=== PATIENT | male | born 1955 | race Caucasian/White ===

== ENCOUNTER → 2018-12-02 | Outpatient (CLI) | payer OTHER ==
[2018-12-02 09:28] LABS: Basophils % (A) 1 %; Eosinophils # (A) 0.3 k/uL (0-0.7); Eosinophils % (A) 6 %; HCT 40.9 % (39.0-53.0); HGB 13.6 gm/dL (13.0-17.5); Lymphocytes # (A) 1.5 k/uL (1.0-4.8); Lymphocytes % (A) 29 %; MCH 31.6 pg (25.0-35.0); MCHC 33.3 g/dL (31.0-37.0); MCV 94.9 fL (80.0-100.0); Mean Platelet Volume 6.8; Monocytes # (A) 0.3 k/uL (0-1.0); Monocytes % (A) 6 %; Neutrophils # (A) 2.9 k/uL (1.3-7.7); Neutrophils % (A) 56 %; Platelet Count 274 k/uL (150-450); RBC 4.31 m/uL (4.30-5.90); RDW 13.7 % (11.5-15.5); WBC 5.2 k/uL (3.8-10.6)
[2018-12-02 17:07] LABS: Albumin 4.5 g/dL (3.80-4.90); Albumin/Globulin Ratio 2.14 (1.60-3.17); Anion Gap 10.3 mmol/L (4.00-12.00); Calcium 9.3 mg/dL (8.7-10.3); Carbon Dioxide 24.7 mmol/L (21.6-31.8); Globulin 2.1 g/dL (1.6-3.3); LDL Cholesterol,Calculated 101.2 mg/dL (0.0-131.0); Potassium 4.4 mmol/L (3.5-5.5); Total Bilirubin 0.9 mg/dL (0.2-1.2); Total Protein 6.6 g/dL (6.2-8.2); Uric Acid 6.3 mg/dL (3.7-8.7); VLDL Calculation 46.8 mg/dL (5.00-40.00)
[2018-12-02 20:31] LABS: Hemoglobin A1C 5.8 % (4.0-6.0)
== END | disposition home or self-care (01) ==
LOC: LABWHC1 08:26
PROVIDERS: ATTEND Internal Medicine
DX: I10 Essential (primary) hypertension (principal); I25.10 Atherosclerotic heart disease of native coronary artery without angina pectoris; E11.9 Type 2 diabetes mellitus without complications; M10.9 Gout, unspecified
CPT/HCPCS: 36415; 80053; 80061; 82550; 83036; 84550; 85025

== ENCOUNTER 2019-01-18 21:01 | Emergency (ER) | payer BC, OTHER ==
[2019-01-18] MEDS ORDERED: DIPH,PERTUS(ACELL)TETVAC-LF 0.5 ML VIAL IM ONE (21:53)
--- NOTE | 2019-01-18 21:53 | ED ---
Head Injury HPI - General Chief complaint: Head Injury Stated complaint: Head Injury/ Dizziness Time Seen by Provider: 01/18/19 21:11 Source: patient Mode of arrival: ambulatory Limitations: no limitations - History of Present Illness Initial comments: Sisi is a previously healthy 63-year-old gentleman who presents the emergency department today for evaluation of head and neck pain. Patient reports that around 2 PM he was walking outside when he walked directly into a tree striking the left forehead. He reports that when this happened he heard a crunching or popping sound in his neck. Patient reports he's been ambulatory since that time but is been developing progressively worsening headache with some photophobia and neck pain. Pain is in the bilateral neck radiating to the bilateral shoulders. Patient takes baby aspirin daily but is on no novel oral anticoagulants or other and her platelet medications. Patient denies any vision changes, troubles with speaking or swallowing, any weakness in the arms or legs, any gait disturbance, - Related Data Home Medications Medication Instructions Recorded Confirmed Allopurinol [Zyloprim] 300 mg PO DAILY 01/18/19 01/18/19 Aspirin EC [Ecotrin Low Dose] 81 mg PO BID 01/18/19 01/18/19 Biotin 10,000 mcg PO DAILY 01/18/19 01/18/19 Cholecalciferol [Vitamin D3 (25 1,000 unit PO DAILY 01/18/19 01/18/19 Mcg = 1000 Iu)] Fish Oil/Dha/Epa [Fish Oil 1,200 2 cap PO BID 01/18/19 01/18/19 mg Fish Oil] Gabapentin [Neurontin] 300 mg PO TID 01/18/19 01/18/19 Losartan [Cozaar] 50 mg PO DAILY 01/18/19 01/18/19 Pravastatin Sodium [Pravachol] 20 mg PO DAILY 01/18/19 01/18/19 Zinc 50 mg PO DAILY 01/18/19 01/18/19 metFORMIN HCL [Glucophage] 500 mg PO BID 01/18/19 01/18/19 Previous Rx's Medication Instructions Recorded Ibuprofen [Motrin] 800 mg PO TID #30 tab 01/18/19 Methocarbamol [Robaxin-750] 750 mg PO TID #30 tablet 01/18/19 Allergies/Adverse reactions: Allergies Allergy/AdvReac Type Severity Reaction Status Date / Time bacitracin Allergy Rash/Hives Verified 01/18/19 21:13 [From Neosporin ([id number])] bee venom protein (honey bee) Allergy Rash/Hives Verified 01/18/19 21:13 codeine Allergy Vomiting Verified 01/18/19 21:13 neomycin Allergy Rash/Hives Verified 01/18/19 21:13 [From Neosporin ([id number])] polymyxin B Allergy Rash/Hives Verified 01/18/19 21:13 [From Neosporin ([id number])] Review of Systems ROS Statement: Those systems with pertinent positive or pertinent negative responses have been documented in the HPI. ROS Other: All systems not noted in ROS Statement are negative. Past Medical History Past Medical History: Diabetes Mellitus, Hyperlipidemia, Hypertension Additional Past Medical History / Comment(s): back pain, neck pain History of Any Multi-Drug Resistant Organisms: None Reported Past Surgical History: Orthopedic Surgery Additional Past Surgical History / Comment(s): hip surgery Past Psychological History: No Psychological Hx Reported Smoking Status: Never smoker Past Alcohol Use History: Occasional Past Drug Use History: None Reported General Exam - General Exam Comments Initial Comments: GENERAL: Patient is well-developed and well-nourished. Patient is nontoxic and well-hydrated and is in no distress. HENT: Normocephalic Abrasion to left forehead TM are normal bilaterally no hemotympanum Neck is soft and supple. Oropharynx is clear. Moist mucous membranes. EYES: The sclera were anicteric and conjunctiva were pink and moist. Extraocular movements were intact and pupils were equal round and reactive to light. Eyelids were unremarkable. No papilledema PULMONARY: Unlabored respirations. Good breath sounds bilaterally. No audible rales rhonchi or wheezing was noted. CARDIOVASCULAR: There is a regular rate and rhythm without any murmurs gallops or rubs. ABDOMEN: Soft and nontender with normal bowel sounds. SKIN: Skin is clear with no lesions or rashes and otherwise unremarkable. NEUROLOGIC: Patient is alert and oriented x3. Cranial nerves II through XII are grossly intact. Motor and sensory are also intact. Normal speech, volume and content. Symmetrical smile. MUSCULOSKELETAL: Normal extremities with adequate strength and full range of motion. No lower extremity swelling or edema. No calf tenderness. LYMPHATICS: No significant lymphadenopathy is noted PSYCHIATRIC: Normal psychiatric evaluation. Limitations: no limitations Course Vital Signs 01/18/19 21:02 Temperature 97.9 F Pulse Rate 101 H Respiratory 18 Rate Blood Pressure 154/93 O2 Sat by Pulse 98 Oximetry Medical Decision Making - Medical Decision Making Patient was seen and evaluated history was obtained from patient and family at bedside Patient is neurovascularly intact CT imaging was obtained CT imaging revealed no acute injuries, patient was reexamined cervical collar was removed, patient has mild paraspinal discomfort likely whiplash injury. Results were discussed with the patient, this time patient's comfortable the plan for discharge home with supportive care. Information on concussions and cervical spine were provided to the patient. Return parameters were discussed, patient was discharged home in stable condition. Disposition Clinical Impression: Closed head injury, Postconcussion syndrome, Cervical strain, acute Disposition: HOME SELF-CARE Condition: Stable Instructions (If sedation given, give patient instructions): Concussion (ED) Prescriptions: Ibuprofen [Motrin] 800 mg PO TID #30 tab Methocarbamol [Robaxin-750] 750 mg PO TID #30 tablet Is patient prescribed a controlled substance at d/c from ED?: No Referrals: Elian Pérez MD [Primary Care Provider] - 1-2 days
--- NOTE | 2019-01-18 22:12 | CT ---
EXAM: CT Head Without Intravenous Contrast CLINICAL HISTORY: ITS.REASON CT Reason: Pain TECHNIQUE: Axial computed tomography images of the head/brain without intravenous contrast. CTDI is 30 mGy and DLP is 1396 mGy-cm. This CT exam was performed using one or more of the following dose reduction techniques: automated exposure control, adjustment of the mA and/or kV according to patient size, and/or use of iterative reconstruction technique. COMPARISON: No relevant prior studies available. FINDINGS: Brain: No hemorrhage, large hypodensity, or mass effect. Ventricles: No hydrocephalus. Bones/joints: Unremarkable. Soft tissues: Unremarkable. Sinuses: Unremarkable. Mastoid air cells: Clear. IMPRESSION: No acute hemorrhage, hydrocephalus, or mass effect. EXAM: CT Cervical Spine Without Intravenous Contrast CLINICAL HISTORY: ITS.REASON CT Reason: Pain TECHNIQUE: Axial computed tomography images of the cervical spine without intravenous contrast. CTDI is 30 mGy and DLP is 1396 mGy-cm. This CT exam was performed using one or more of the following dose reduction techniques: automated exposure control, adjustment of the mA and/or kV according to patient size, and/or use of iterative reconstruction technique. COMPARISON: No relevant prior studies available. FINDINGS: Vertebrae: No acute fracture. Discs/spinal canal/neural foramina: Mild multilevel degenerative disc disease. No high grade spinal canal stenosis. Soft tissues: Unremarkable. IMPRESSION: No acute fracture or subluxation.
[2019-01-18] MEDS ORDERED: KETOROLAC 30 MG/ML 1 ML VIAL IM STA (22:25)
[2019-01-18] MEDS ORDERED: DIAZEPAM 2 MG TAB PO STA (22:26)
[2019-01-18 23:15] VITALS: BP 121/78; PULSE 77; RESP 20; TEMP 98
== END 2019-01-18 23:14 | disposition home or self-care (01) ==
LOC: EC 21:01
DX: F07.81 Postconcussional syndrome (principal); S16.1XXA Strain of muscle, fascia and tendon at neck level, initial encounter; S09.90XA Unspecified injury of head, initial encounter; E11.9 Type 2 diabetes mellitus without complications; E78.5 Hyperlipidemia, unspecified; I10 Essential (primary) hypertension; Z79.82 Long term (current) use of aspirin; Z79.84 Long term (current) use of oral hypoglycemic drugs; Z79.899 Other long term (current) drug therapy; Z88.1 Allergy status to other antibiotic agents; Z88.5 Allergy status to narcotic agent; Z91.030 Bee allergy status; W22.8XXA Striking against or struck by other objects, initial encounter; Y93.01 Activity, walking, marching and hiking; Y92.89 Other specified places as the place of occurrence of the external cause; Z23 Encounter for immunization
CPT/HCPCS: 72125; 70450; 90715; 99284; 90471; 96372; J1885

== ENCOUNTER → 2019-05-20 | Outpatient (CLI) | payer BC ==
--- NOTE | 2019-05-20 13:42 | XR ---
EXAMINATION TYPE: XR chest 2V DATE OF EXAM: 05/20/2019 COMPARISON: NONE HISTORY: Cough and congestion for 1.5 weeks. TECHNIQUE: Frontal and lateral views of the chest are obtained. FINDINGS: Back on underlying emphysematous changes are present on lateral view with flattened hemidia phragms. There is no focal air space opacity, pleural effusion, or pneumothorax seen. The cardiac s ilhouette size is within normal limits. The osseous structures are intact. IMPRESSION: Chronic emphysematous change without acute pulmonary process.
== END | disposition home or self-care (01) ==
LOC: RADXRMAIN 11:54
PROVIDERS: ATTEND Internal Medicine Geriatric Medicine
DX: J43.9 Emphysema, unspecified (principal)
CPT/HCPCS: 71046

== ENCOUNTER → 2019-09-30 | Outpatient (CLI) | payer BC, MEDICARE ==
[2019-09-30 08:39] LABS: Basophils # (A) 0.1 k/uL (0-0.2); Basophils % (A) 1 %; Eosinophils # (A) 0.5 k/uL (0-0.7); Eosinophils % (A) 8 %; HCT 44.4 % (39.0-53.0); HGB 14.2 gm/dL (13.0-17.5); Lymphocytes # (A) 1.7 k/uL (1.0-4.8); Lymphocytes % (A) 31 %; MCH 31.6 pg (25.0-35.0); MCV 98.7 fL (80.0-100.0); Mean Platelet Volume 6.5; Monocytes # (A) 0.4 k/uL (0-1.0); Monocytes % (A) 7 %; Neutrophils # (A) 2.8 k/uL (1.3-7.7); Neutrophils % (A) 50 %; Platelet Count 238 k/uL (150-450); RDW 12.6 % (11.5-15.5); WBC 5.5 k/uL (3.8-10.6)
[2019-09-30 18:32] LABS: African American GFR (CKD) 81.2 (60.0-200.0); Albumin 4.7 g/dL (3.80-4.90); Albumin/Globulin Ratio 2.35 (1.60-3.17); Anion Gap 7.5 mmol/L (4.00-12.00); BUN/Creat Ratio 15.45 Ratio (12.00-20.00); Calcium 9.4 mg/dL (8.7-10.3); Carbon Dioxide 28.5 mmol/L (21.6-31.8); Chol/HDL Ratio 3.69; Non-African American GFR(CKD) 70.1 (60.0-200.0); Potassium 4.9 mmol/L (3.5-5.5); Total Bilirubin 0.8 mg/dL (0.3-1.2); Total Protein 6.7 g/dL (6.2-8.2)
[2019-09-30 21:05] LABS: Hemoglobin A1C 5.9 % (4.0-6.0)
== END | disposition home or self-care (01) ==
LOC: LABWHC1 08:06
PROVIDERS: ATTEND Internal Medicine
DX: I10 Essential (primary) hypertension (principal); E11.9 Type 2 diabetes mellitus without complications; E78.2 Mixed hyperlipidemia
CPT/HCPCS: 36415; 80053; 80061; 83036; 84443; 85025

== ENCOUNTER → 2020-12-30 | Outpatient (CLI) | payer BC, MEDICARE ==
--- NOTE | 2020-12-30 11:36 | XR ---
EXAMINATION TYPE: XR elbow complete LT DATE OF EXAM: 12/30/2020 COMPARISON: 10/16/2012 HISTORY: Pain FINDINGS: Three views of the elbow demonstrate a pathologic joint effusion. The osseous structures are intact. There is no acute fracture or dislocation. There is a bony density posterior to the olecranon like ly chronic. Spurring along the proximal ulna and radius and distal humerus are noted. IMPRESSION: 1. No pathologic fat pad can be associated with a joint effusion. In the setting of trauma could be a ssociated with occult fracture. If no history of trauma consider inflammatory arthropathy etiology.
== END | disposition home or self-care (01) ==
LOC: RADXRMAIN 11:10
PROVIDERS: ATTEND Internal Medicine
DX: M25.522 Pain in left elbow (principal)

== ENCOUNTER → 2024-07-14 | Outpatient (CLI) | payer MEDICARE ==
[2024-07-14 16:14] LABS: Appearance,Urine Clear (Clear); Bilirubin,Urine Negative (Negative); Blood,Urine Negative (Negative); Color,Urine Yellow (Yellow); Ketones,Urine Negative (Negative); Nitrite,Urine Negative (Negative); Specific Gravity,Urine 1.006 (1.001-1.030); Urobilinogen,Urine 0.2 E.U./DL
== END | disposition home or self-care (01) ==
LOC: LABWHC1 10:40
PROVIDERS: ATTEND Internal Medicine
DX: I10 Essential (primary) hypertension (principal); I42.8 Other cardiomyopathies
CPT/HCPCS: 36415; 81003; 83880

== ENCOUNTER → 2024-12-24 | Outpatient (CLI) | payer MEDICARE ==
[2024-12-24 15:02] LABS: Basophils # (A) 0.05 X 10*3/uL (0.00-0.10); Basophils % (A) 0.7 %; HCT 42.7 % (39.6-50.0); HGB 13.8 g/dL (13.0-17.0); Lymphocytes # (A) 2.22 X 10*3/uL (0.90-5.00); Lymphocytes % (A) 31.1 %; MCH 31.9 pg (27.0-32.0); MCHC 32.3 g/dL (32.0-37.0); MCV 98.8 FL (80.0-97.0); Mean Platelet Volume 9.6 FL (9.5-12.2); Monocytes # (A) 0.59 X 10*3/uL (0.20-1.00); Monocytes % (A) 8.3 %; NRBC Per 100 WBC 0 X 10*3/uL (0.00-0.01); Neutrophils # (A) 3.77 X 10*3/uL (1.80-7.70); Neutrophils % (A) 52.8 %; Platelet Count 248 X 10*3/uL (140-440); RBC 4.32 X 10*6/uL (4.40-5.60); RDW 12.6 % (11.5-14.5); WBC 7.14 X 10*3/uL (4.50-10.00)
[2024-12-24 15:45] LABS: ALT 31 U/L (10-49); AST 28 U/L (14-35); Albumin 4.4 g/dL (3.8-4.9); Albumin/Globulin Ratio 1.69 Ratio (1.60-3.17); Alkaline Phosphatase 49 U/L (41-126); Blood Urea Nitrogen 11.8 mg/dL (9.0-27.0); Calcium 9.7 mg/dL (8.7-10.3); Carbon Dioxide 24.1 mmol/L (21.6-31.8); Chloride 106 mmol/L (96-109); Creatine Kinase 185 U/L (35-257); Globulin 2.6 g/dL (1.6-3.3); Glucose 142 mg/dL (70-110); LDL Cholesterol,Calculated 64.9 mg/dL (0.0-131.0); Magnesium 1.7 mg/dL (1.5-2.4); Prostate Specific Antigen 0.79 ng/mL (0.000-6.500); Sodium 143 mmol/L (135-145); Total Bilirubin 0.8 mg/dL (0.3-1.2); Uric Acid 5.8 mg/dL (3.7-8.7)
[2024-12-24 21:41] LABS: Appearance,Urine Clear (Clear); Bilirubin,Urine Negative (Negative); Blood,Urine Negative (Negative); Color,Urine Yellow (Yellow); Ketones,Urine Negative (Negative); Nitrite,Urine Negative (Negative); PH, Urine 7.5; Specific Gravity,Urine 1.016 (1.001-1.030); Urobilinogen,Urine 0.2 E.U./DL
== END | disposition home or self-care (01) ==
LOC: LABWHC1 08:23
PROVIDERS: ATTEND Internal Medicine
DX: Z00.00 Encounter for general adult medical examination without abnormal findings (principal); I10 Essential (primary) hypertension; E78.2 Mixed hyperlipidemia; E11.9 Type 2 diabetes mellitus without complications; N40.1 Benign prostatic hyperplasia with lower urinary tract symptoms
CPT/HCPCS: 36415; 80053; 80061; 81003; 82043; 82550; 82570; 83036; 83735; 84153; 84443; 84550; 85025

== ENCOUNTER → 2025-03-12 | Outpatient (CLI) | payer MEDICARE ==
[2025-03-12 12:29] LABS: African American GFR (CKD) >90 (>60 ml/min/1.73 sqM); Blood Urea Nitrogen 16 mg/dL (9-20); Non-African American GFR(CKD) 88 (>60 ml/min/1.73 sqM)
--- NOTE | 2025-03-12 14:17 | CT ---
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 TECHNIQUE/CONTRAST: CTA scan of the thorax is performed without and with IV Contrast, patient injected with 100ml mL of I sovue 370, MIP images are created and reviewed these are created on a separate workstation.. CT DLP: 851.1 mGycm, Automated exposure control for dose reduction was used. FINDINGS: Lungs/Pleura: No evidence of focal consolidation, pleural effusion or pneumothorax. Airway: Large airways are patent. Heart: Size within normal limits. No significant coronary artery calcifications. Vasculature: No evidence for intramural hematoma on noncontrast imaging. No evidence of intimal flap to suggest dissection. No aneurysm identified. Scattered atherosclerotic disease. There is no evidenc e for a filling defect within the pulmonary vasculature to suggest acute pulmonary embolism. The pul monary artery is of normal size. Ascending thoracic aorta measures up to 36 mm which is within vianney l limits. There is a 2 vessel aortic arch. The descending thoracic aorta is within normal limits. Vis ualized upper abdominal aorta is within normal limits. Mediastinum: No gross evidence of adenopathy. Musculoskeletal: No acute osseous abnormalities Soft Tissues/lymph nodes: Unremarkable. Lower neck: No significant findings. Upper Abdomen: Simple appearing left renal cortical cyst partially visualized. No follow up recommend ed. IMPRESSION: No evidence for aortic aneurysm, dissection or occlusion. No evidence for pulmonary embolus in the ce ntral pulmonary vasculature. [facility], , 03/12/2025 2:15 PM
== END | disposition home or self-care (01) ==
LOC: RADCTMAIN 11:24
PROVIDERS: ATTEND Nurse Practitioner Adult Health
DX: I71.20 Thoracic aortic aneurysm, without rupture, unspecified (principal)
CPT/HCPCS: 82565; 84520; 71275; 36415; Q9967